=== PATIENT | female | born 1945 | race Caucasian/White ===

== ENCOUNTER 2020-05-31 13:21 | Inpatient (IN) ==
[2020-05-31] MEDS ORDERED: ALBUTEROL/IPRATROPIUM 3 ML NEB RESP TX PRN (14:19)
[2020-05-31] MEDS ORDERED: ONDANSETRON 4 MG/2 ML VIAL IV PRN (14:19)
[2020-05-31] MEDS ORDERED: POLYETHYLENE GLYCOL POWDER 17 GM PACK PO PRN (14:22)
[2020-05-31 14:52] LABS: Basophils % 0.3 % (0.0-0.8); Eosinophils % 0.2 % (0.00-10.9); Hemoglobin 9.5 GM/DL (12.0-16.0); Immature Granulocytes % 0.7 %; Immature Granulocytes Absolute 0.07 #; Lymphocytes # 0.8 10*3/uL (1.4-4.0); Lymphocytes % 7.9 % (21.3-54.2); Mean Corpuscular HGB Conc 32.8 GM/DL (32-36); Mean Corpuscular Volume 87.1 FL (87-102); Mean Platelet Volume 9.2 FL (9.6-12.0); Monocytes % 8.8 % (1.7-12.7); Neutrophils % 82.1 % (38.7-73.9); Platelet Count 354 T/CUMM (130-400); Red Blood Count 3.33 MC/CUMM (3.8-5.5); White Blood Count 10.5 T/CUMM (4-12)
[2020-05-31 15:10] LABS: Calcium 9.2 MG/DL (8.5-10.1); Osmolality,Calculated 278.7 MOS/KG (273-304)
[2020-05-31] MEDS: LACTATED RINGERS 1,000 ML IV SCH (15:53)
[2020-05-31] MEDS: CLINDAMYCIN INJ 300 MG in PREMIX 1 EACH IV SCH ×2 (15:53→21:21)
[2020-05-31] MEDS: ACETAMINOPHEN 325 MG TABLET PO PRN (15:54)
[2020-06-01] MEDS: PIPERACILLIN/TAZOBACTAM 3,375 MG in SODIUM CHLORIDE 0.9% 100 ML IV SCH (00:03)
[2020-06-01] MEDS: LACTATED RINGERS 1,000 ML IV SCH ×3 (03:17→22:04)
[2020-06-01] MEDS: CLINDAMYCIN INJ 300 MG in PREMIX 1 EACH IV SCH ×4 (03:18→21:01)
[2020-06-01] MEDS: POTASSIUM CHLORIDE 20 MEQ TABLET PO SCH (08:58)
[2020-06-01] MEDS: CHOLECALCIFEROL 1,000 UNIT TABLET PO SCH (08:58)
[2020-06-01] MEDS: ASPIRIN EC 81 MG TABLET PO SCH (08:58)
[2020-06-01] MEDS: CALCIUM (CARBONATE)/VITAMIN D 600 MG-400 UNIT TABLET PO SCH (08:58)
[2020-06-01] MEDS: ROSUVASTATIN 10 MG TABLET PO SCH (08:58)
[2020-06-01] MEDS: PANTOPRAZOLE 40 MG TABLET PO SCH (08:59)
[2020-06-01] MEDS: DILTIAZEM CD 120 MG CAPSULE PO SCH (08:59)
[2020-06-01] MEDS: RIVAROXABAN 20 MG TABLET PO SCH (09:05)
[2020-06-01] MEDS ORDERED: VANCOMYCIN INJ 1,000 MG in SODIUM CHLORIDE 0.9% 250 ML IV SCH (22:00)
[2020-06-01] MEDS: ACETAMINOPHEN 325 MG TABLET PO PRN (22:05)
[2020-06-02] MEDS: CLINDAMYCIN INJ 300 MG in PREMIX 1 EACH IV SCH ×4 (04:15→21:10)
[2020-06-02 05:02] LABS: Basophils % 0.6 % (0.0-0.8); Eosinophils # 0.2 10*3/uL (0.0-0.87); Eosinophils % 4.3 % (0.00-10.9); Hematocrit 25.9 VOL% (35.7-47.0); Hemoglobin 8.1 GM/DL (12.0-16.0); Immature Granulocytes % 0.4 %; Immature Granulocytes Absolute 0.02 #; Lymphocytes # 0.9 10*3/uL (1.4-4.0); Lymphocytes % 20.1 % (21.3-54.2); Mean Corpuscular HGB Conc 31.3 GM/DL (32-36); Mean Corpuscular Volume 88.4 FL (87-102); Mean Platelet Volume 9.1 FL (9.6-12.0); Monocytes % 12.2 % (1.7-12.7); Neutrophils % 62.4 % (38.7-73.9); Platelet Count 344 T/CUMM (130-400); Red Blood Count 2.93 MC/CUMM (3.8-5.5); White Blood Count 4.7 T/CUMM (4-12)
[2020-06-02 05:21] LABS: Calcium 8.8 MG/DL (8.5-10.1); Osmolality,Calculated 282.1 MOS/KG (273-304)
[2020-06-02] MEDS: PIPERACILLIN/TAZOBACTAM 3,375 MG in SODIUM CHLORIDE 0.9% 100 ML IV SCH ×2 (08:21→14:40)
[2020-06-02] MEDS: CHOLECALCIFEROL 1,000 UNIT TABLET PO SCH (10:51)
[2020-06-02] MEDS: DILTIAZEM CD 120 MG CAPSULE PO SCH (10:51)
[2020-06-02] MEDS: ASPIRIN EC 81 MG TABLET PO SCH (10:52)
[2020-06-02] MEDS: CALCIUM (CARBONATE)/VITAMIN D 600 MG-400 UNIT TABLET PO SCH (10:52)
[2020-06-02] MEDS: RIVAROXABAN 20 MG TABLET PO SCH (10:53)
[2020-06-02] MEDS: PANTOPRAZOLE 40 MG TABLET PO SCH (10:53)
[2020-06-02] MEDS: ROSUVASTATIN 10 MG TABLET PO SCH (10:53)
[2020-06-02] MEDS: POTASSIUM CHLORIDE 20 MEQ TABLET PO SCH (10:53)
[2020-06-02] MEDS: LACTATED RINGERS 1,000 ML IV SCH ×2 (10:54→21:10)
[2020-06-02] MEDS: ACETAMINOPHEN 325 MG TABLET PO PRN (21:17)
[2020-06-03] MEDS: CLINDAMYCIN INJ 300 MG in PREMIX 1 EACH IV SCH ×4 (03:19→21:53)
[2020-06-03] MEDS: PIPERACILLIN/TAZOBACTAM 3,375 MG in SODIUM CHLORIDE 0.9% 100 ML IV SCH ×2 (03:56→17:42)
[2020-06-03] MEDS ORDERED: LIDOCAINE 1%/EPI INJ 20 ML VIAL ONE (06:20)
[2020-06-03] MEDS ORDERED: BUPIVACAINE MPF 0.25% 30 ML VIAL ONE (06:21)
[2020-06-03] MEDS ORDERED: DIAZEPAM 5 MG TABLET PO ONE (06:52)
[2020-06-03] MEDS ORDERED: GABAPENTIN 400 MG CAPSULE PO ONE (06:52)
[2020-06-03] MEDS ORDERED: SEVOFLURANE 1 UNIT/15 MINUTE INH ONE (07:49)
[2020-06-03] MEDS ORDERED: LIDOCAINE 2% 5 ML VIAL ONE (07:49)
[2020-06-03] MEDS ORDERED: propofoL 200 MG/20 ML VIAL IV ONE (07:49)
[2020-06-03] MEDS ORDERED: DEXAMETHASONE 4 MG/1 ML VIAL ONE (07:50)
[2020-06-03] MEDS ORDERED: ONDANSETRON 4 MG/2 ML VIAL ONE (07:50)
[2020-06-03] MEDS ORDERED: fentaNYL 100 MCG/2 ML VIAL ONE (07:50)
[2020-06-03] MEDS ORDERED: ONDANSETRON 4 MG/2 ML VIAL IV PRN (08:10)
[2020-06-03] MEDS: HYDROmorphone 2 MG/1 ML VIAL IV PRN ×2 (08:15→08:21)
[2020-06-03] MEDS: RIVAROXABAN 20 MG TABLET PO SCH (10:18)
[2020-06-03] MEDS: CHOLECALCIFEROL 1,000 UNIT TABLET PO SCH (10:18)
[2020-06-03] MEDS: CALCIUM (CARBONATE)/VITAMIN D 600 MG-400 UNIT TABLET PO SCH (10:18)
[2020-06-03] MEDS: DILTIAZEM CD 120 MG CAPSULE PO SCH (10:19)
[2020-06-03] MEDS: ASPIRIN EC 81 MG TABLET PO SCH (10:19)
[2020-06-03] MEDS: POTASSIUM CHLORIDE 20 MEQ TABLET PO SCH (10:19)
[2020-06-03] MEDS: ROSUVASTATIN 10 MG TABLET PO SCH (10:20)
[2020-06-03] MEDS: PANTOPRAZOLE 40 MG TABLET PO SCH (10:21)
[2020-06-03] MEDS: LACTATED RINGERS 1,000 ML IV SCH (10:42)
[2020-06-04] MEDS: PIPERACILLIN/TAZOBACTAM 3,375 MG in SODIUM CHLORIDE 0.9% 100 ML IV SCH (02:12)
[2020-06-04] MEDS: CLINDAMYCIN INJ 300 MG in PREMIX 1 EACH IV SCH ×4 (04:15→21:16)
[2020-06-04] MEDS: CEFEPIME 1,000 MG in SODIUM CHLORIDE 0.9% 100 ML IV SCH ×3 (07:30→18:08)
[2020-06-04] MEDS: DILTIAZEM CD 120 MG CAPSULE PO SCH (09:49)
[2020-06-04] MEDS: ROSUVASTATIN 10 MG TABLET PO SCH (09:49)
[2020-06-04] MEDS: CHOLECALCIFEROL 1,000 UNIT TABLET PO SCH (09:49)
[2020-06-04] MEDS: PANTOPRAZOLE 40 MG TABLET PO SCH (09:50)
[2020-06-04] MEDS: POTASSIUM CHLORIDE 20 MEQ TABLET PO SCH (09:50)
[2020-06-04] MEDS: RIVAROXABAN 20 MG TABLET PO SCH (09:50)
[2020-06-04] MEDS: ASPIRIN EC 81 MG TABLET PO SCH (09:50)
[2020-06-04] MEDS: CALCIUM (CARBONATE)/VITAMIN D 600 MG-400 UNIT TABLET PO SCH (10:18)
[2020-06-05] MEDS: CEFEPIME 1,000 MG in SODIUM CHLORIDE 0.9% 100 ML IV SCH ×4 (00:59→18:24)
[2020-06-05] MEDS: CLINDAMYCIN INJ 300 MG in PREMIX 1 EACH IV SCH ×4 (03:14→21:51)
[2020-06-05] MEDS: LACTATED RINGERS 1,000 ML IV SCH ×5 (06:02→21:52)
[2020-06-05] MEDS: CHOLECALCIFEROL 1,000 UNIT TABLET PO SCH (08:59)
[2020-06-05] MEDS: PANTOPRAZOLE 40 MG TABLET PO SCH (08:59)
[2020-06-05] MEDS: BISACODYL 5 MG TABLET PO PRN (08:59)
[2020-06-05] MEDS: RIVAROXABAN 20 MG TABLET PO SCH (08:59)
[2020-06-05] MEDS: ROSUVASTATIN 10 MG TABLET PO SCH (08:59)
[2020-06-05] MEDS: CALCIUM (CARBONATE)/VITAMIN D 600 MG-400 UNIT TABLET PO SCH (09:00)
[2020-06-05] MEDS: DILTIAZEM CD 120 MG CAPSULE PO SCH (09:00)
[2020-06-05] MEDS: POTASSIUM CHLORIDE 20 MEQ TABLET PO SCH (09:00)
[2020-06-05] MEDS: ASPIRIN EC 81 MG TABLET PO SCH (09:00)
[2020-06-06] MEDS: CEFEPIME 1,000 MG in SODIUM CHLORIDE 0.9% 100 ML IV SCH ×2 (01:01→06:01)
[2020-06-06] MEDS: CLINDAMYCIN INJ 300 MG in PREMIX 1 EACH IV SCH ×2 (04:48→09:28)
[2020-06-06] MEDS: LACTATED RINGERS 1,000 ML IV SCH (06:01)
[2020-06-06] MEDS: RIVAROXABAN 20 MG TABLET PO SCH (09:27)
[2020-06-06] MEDS: CHOLECALCIFEROL 1,000 UNIT TABLET PO SCH (09:27)
[2020-06-06] MEDS: BISACODYL 5 MG TABLET PO PRN (09:28)
[2020-06-06] MEDS: POTASSIUM CHLORIDE 20 MEQ TABLET PO SCH (09:28)
[2020-06-06] MEDS: CALCIUM (CARBONATE)/VITAMIN D 600 MG-400 UNIT TABLET PO SCH (09:28)
[2020-06-06] MEDS: PANTOPRAZOLE 40 MG TABLET PO SCH (09:28)
[2020-06-06] MEDS: ASPIRIN EC 81 MG TABLET PO SCH (09:28)
[2020-06-06] MEDS: ROSUVASTATIN 10 MG TABLET PO SCH (09:28)
[2020-06-06] MEDS: DILTIAZEM CD 120 MG CAPSULE PO SCH (09:28)
[2020-06-06 11:57] VITALS: BP 109/65
== END 2020-06-06 12:14 | disposition home health service (06) | DRG 863 ==
LOC: N.EDINP 13:21 → N.ED 13:21 → N.3E 15:03
PROVIDERS: ADMIT Surgery; ATTEND Surgery